=== PATIENT | male | born 1985 | race Caucasian/White ===

== ENCOUNTER 2020-12-22 13:38 | Emergency (ER) | payer BC ==
[2020-12-22 15:05] LABS: HEMOGLOBIN 14.8 gm/dl (14.0-17.5); RED BLOOD COUNT 4.97 M/UL (4.20-5.50); WHITE BLOOD COUNT 6.8 K/UL (4.5-11.0)
[2020-12-22 15:28] LABS: BUN/CREATININE RATIO 21 (0-10)
[2020-12-22] MEDS ORDERED: VENTOLIN HFA 66.7 GM INH (18:00)
== END 2020-12-22 18:10 | disposition home or self-care (01) ==
LOC: ER1 13:38
PROVIDERS: Emergency Medicine
DX: R07.81 Pleurodynia (principal); F45.8 Other somatoform disorders
CPT/HCPCS: 70450; 71045; 80053; 82550; 82553; 83874; 84484; 85025; 93005; 99285; Q9967